=== PATIENT | female | born 1940 | race Caucasian/White ===

== ENCOUNTER 2023-01-14 18:46 | Emergency (ER) | payer MEDICARE, MEDICAID ==
[2023-01-14] MEDS ORDERED: Lidocaine 1% with EPINEPHrine 1:100,000 50 ML MDV SUBCUT ONE (19:09)
[2023-01-14] MEDS ORDERED: Bacitracin Oint 1 GM U/D Packet TOP ONE (19:09)
[2023-01-14 19:27] VITALS: BP 181/74; PULSE 71
== END 2023-01-14 20:34 | disposition home or self-care (01) ==
LOC: JP.ED 18:46
DX: S81.811A Laceration without foreign body, right lower leg, initial encounter (principal); E78.00 Pure hypercholesterolemia, unspecified; I10 Essential (primary) hypertension; Z88.2 Allergy status to sulfonamides; Z79.82 Long term (current) use of aspirin; Z79.899 Other long term (current) drug therapy
CPT/HCPCS: 99282